=== PATIENT | female | born 1955 | race Caucasian/White ===

== ENCOUNTER 2018-04-17 14:34 | Emergency (ER) | payer MEDICARE ==
[2018-04-17 15:03] VITALS: PULSE 77; RESP 16
--- NOTE | 2018-04-17 15:38 | ED PDOC ---
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 Patient reports she was in the bathroom this morning when she slipped on the wet floor. She states her left side of her head and upper part of her body hit the edge of the bath tub. She is complaining of pain and abrasions to the left arm. She denies any active bleeding to the left side of her head. Of note, patient states she had two surgeries on her back and one on her head back in 2014. She also reports suffering two seizures back in 2016 leaving her with left sided mobility issues. PMD: Dr. Cortez - Fall Fall:Prior To Injury: Slipped (water on bathroom floor) Past Medical History Reviewed: Historical Data, Nursing Documentation, Vital Signs Vital Signs: Last Vital Signs Temp 98.1 F 04/17/18 14:58 Pulse 77 04/17/18 14:58 Resp 16 04/17/18 14:58 BP 142/80 04/17/18 14:58 Pulse Ox 98 04/17/18 14:58 - Medical History PMH: Arthritis, Asthma, Back Problems, Diabetes, Gastritis, HTN, Pneumonia Denies: Chronic Kidney Disease - Surgical History Surgical History: Back Surgery - Family History Family History: States: Unknown Family Hx - Immunization History Hx Tetanus Toxoid Vaccination: No Hx Influenza Vaccination: No Hx Pneumococcal Vaccination: Yes - Home Medications Home Medications: Ambulatory Orders Medication Instructions Recorded Aspirin [Aspirin Chewable] 81 mg PO DAILY 02/10/16 Losartan [Cozaar] 100 mg PO DAILY 02/10/16 Pregabalin [Lyrica] 150 mg PO HS 02/10/16 traMADol [Ultram] 50 mg PO TID 02/10/16 Cyclobenzaprine [Flexeril] 10 mg PO TID #27 tab 04/17/18 - Allergies Allergies/Adverse Reactions: Allergies Allergy/AdvReac Type Severity Reaction Status Date / Time No Known Allergies Allergy Unverified 04/17/14 09:10 Review of Systems ROS Statement: Except As Marked, All Systems Reviewed And Found Negative Musculoskeletal: Positive for: Arm Pain (left arm with abrasions) Neurological: Positive for: Other (s/p injury to left side of head) Physical Exam - Reviewed Vital Signs Reviewed: Yes - Physical Exam Appears: Positive for: Non-toxic, No Acute Distress Head Exam: Positive for: ATRAUMATIC, NORMAL INSPECTION, NORMOCEPHALIC Skin: Positive for: Normal Color, Warm, Dry (facial area has no hematoma, no laceration, none ecchymotic without swelling or discoloration ) Eye Exam: Positive for: Normal appearance, EOMI, PERRL, Periorbital tenderness ( to the left orbit). Negative for: Nystagmus, Periorbital swelling Cardiovascular/Chest: Positive for: Regular Rate, Rhythm Respiratory: Positive for: Normal Breath Sounds Pulses-Carotid (L): 2+ Pulses-Carotid (R): 2+ Pulses-Radial (L): 2+ Pulses-Radial (R): 2+ Back: Positive for: Normal Inspection Extremity: Positive for: Normal ROM (FULL ACTIVE AND PASSIVE ROM IN BOTH SHOULDERS AND UPPER EXTREMITIES), Capillary Refill (LESS THAN 2 SECONDS). Negative for: Tenderness, Deformity, Swelling Neurologic/Psych: Positive for: Alert, ems educator II-XII (grossly intact), Oriented (x3 ), Motor/Sensory Deficits (yes s/p two strokes in 2017 has left sided upper extremity motor/sensory deficits). Negative for: Aphasia, Facial Droop - ECG O2 Sat by Pulse Oximetry: 98 (RA) Pulse Ox Interpretation: Normal Medical Decision Making Medical Decision Making: Time: 14:58 Impression: r/o acute head injury Plan: * Left shoulder x-ray * CT of the head CT results... FINDINGS: HEMORRHAGE: No intracranial hemorrhage. BRAIN: No mass effect or edema. No atrophy or chronic microvascular ischemic changes. Small area of encephalomalacia in the right thalamus. Area of encephalomalacia posterior lateral to the right quadrigeminal plate cistern. VENTRICLES: Right transfrontal ventriculostomy catheter with tip in the body of the right lateral ventricle. No hydrocephalus. CALVARIUM: Right frontal dione hole. PARANASAL SINUSES: Unremarkable as visualized. No significant inflammatory changes. MASTOID AIR CELLS: Unremarkable as visualized. No inflammatory changes. OTHER FINDINGS: None. IMPRESSION: No acute intracranial pathology. Left shoulder x-ray results... FINDINGS: BONES: New acute fracture. Left humeral head surgical tacks. Partially imaged thoracic spinal fusion hardware. JOINTS: Glenohumeral and acromioclavicular joint degenerative changes. SOFT TISSUES: Normal. OTHER FINDINGS: None. IMPRESSION: No demonstrated fracture or dislocation. Scribe Attestation: Documented by Corey Johnson acting as a scribe Antonia Flores PA-C. Scribe Attestation: All medical record entries made by the Scribe were at my direction and personally dictated by me. I have reviewed the chart and agree that the record accurately reflects my personal performance of the history, physical exam, medical decision making, and the department course for this patient. I have also personally directed, reviewed, and agree with the discharge instructions and disposition. Disposition - Clinical Impression Clinical Impression: Head injury, Concussion, Fall - Patient ED Disposition Is Patient to be Admitted: No Doctor Will See Patient In The: Office Counseled Patient/Family Regarding: Diagnosis, Need For Followup, Rx Given - Disposition Disposition: Routine/Home Disposition Time: 17:00 Condition: STABLE Prescriptions: Cyclobenzaprine [Flexeril] 10 mg PO TID #27 tab Instructions: Concussion in Adults, Postconcussion Syndrome, Closed Head Injury (DC), Postconcussion Syndrome (DC) Forms: [employer] (Syriac), [employer] (Hungarian) Print Language: ENGLISH
--- NOTE | 2018-04-17 16:31 | CT ---
PROCEDURE: CT HEAD WITHOUT CONTRAST. HISTORY: fall COMPARISON: MRI brain dated 02/11/[address] head dated 02/10/2016 performed at [facility]. TECHNIQUE: Axial computed tomography images were obtained through the head/brain without intravenous contrast. Radiation dose: Total exam DLP = 767.3 mGy-cm. This CT exam was performed using one or more of the following dose reduction techniques: Automated exposure control, adjustment of the mA and/or kV according to patient size, and/or use of iterative reconstruction technique. FINDINGS: HEMORRHAGE: No intracranial hemorrhage. BRAIN: No mass effect or edema. No atrophy or chronic microvascular ischemic changes. Small area of encephalomalacia in the right thalamus. Area of encephalomalacia posterior lateral to the right quadrigeminal plate cistern. VENTRICLES: Right transfrontal ventriculostomy catheter with tip in the body of the right lateral ventricle. No hydrocephalus. CALVARIUM: Right frontal dione hole. PARANASAL SINUSES: Unremarkable as visualized. No significant inflammatory changes. MASTOID AIR CELLS: Unremarkable as visualized. No inflammatory changes. OTHER FINDINGS: None. IMPRESSION: No acute intracranial pathology.
--- NOTE | 2018-04-17 16:39 | RAD ---
PROCEDURE: Radiographs of the Left Shoulder HISTORY: r/o fx COMPARISON: No prior. FINDINGS: BONES: New acute fracture. Left humeral head surgical tacks. Partially imaged thoracic spinal fusion hardware. JOINTS: Glenohumeral and acromioclavicular joint degenerative changes. SOFT TISSUES: Normal. OTHER FINDINGS: None. IMPRESSION: No demonstrated fracture or dislocation.
[2018-04-17 17:12] VITALS: BP 135/74; TEMP 98
[2018-04-17 17:51] VITALS: O2SAT 98
== END 2018-04-17 17:10 | disposition home or self-care (01) ==
LOC: H.ER 14:34
DX: S06.0X0A Concussion without loss of consciousness, initial encounter (principal); S40.812A Abrasion of left upper arm, initial encounter; W01.0XXA Fall on same level from slipping, tripping and stumbling without subsequent striking against object, initial encounter; Y92.002 Bathroom of unspecified non-institutional (private) residence as the place of occurrence of the external cause; E11.9 Type 2 diabetes mellitus without complications; I10 Essential (primary) hypertension; J45.909 Unspecified asthma, uncomplicated; Z79.82 Long term (current) use of aspirin; R56.9 Unspecified convulsions

== ENCOUNTER 2018-08-17 09:34 | Day surgery (SDC) | payer MEDICARE ==
[2018-08-17] MEDS ORDERED: Lactated Ringer's 500 ML IV ONE (10:07)
[2018-08-17 10:37] VITALS: TEMP 96.9
[2018-08-17] MEDS ORDERED: Propofol 10 mg/ml Inj (20 ML) ONE (11:01)
[2018-08-17 11:41] VITALS: BP 115/76; PULSE 88; RESP 12; O2SAT 100
== END 2018-08-17 12:20 | disposition home or self-care (01) ==
LOC: H.ENDO 09:34
PROVIDERS: ATTEND Internal Medicine Gastroenterology
DX: Z80.0 Family history of malignant neoplasm of digestive organs (principal); I10 Essential (primary) hypertension; Z86.73 Personal history of transient ischemic attack (TIA), and cerebral infarction without residual deficits; K64.0 First degree hemorrhoids; K57.30 Diverticulosis of large intestine without perforation or abscess without bleeding
CPT/HCPCS: 45378; J2001; J2704; J7120